=== PATIENT | male | born 1975 | race Caucasian/White ===

== ENCOUNTER 2019-01-22 19:32 | Emergency (ER) | payer OTHER, SELFPAY ==
[2019-01-22] MEDS ORDERED: NEOMY/POLY/HC 1% OTIC DROPS ONE (22:04)
[2019-01-22] MEDS ORDERED: FENTANYL CITR 100 MCG/2 ML ONE (22:04)
--- NOTE | 2019-01-22 22:49 | EDPHYS ---
Physician Documentation [facility] Name: Eyal Dillard Age: 43 yrs Sex: Male : 1975 Arrival Date: 01/22/2019 Time: 19:35 Bed 13 Private MD: ED Physician Aniket Felix HPI: 01/23 02:22 This 43 yrs old Male presents to ER via Ambulatory with complaints of Ear snw Pain. 02:22 The patient presents with pain, severe. The complaints affect the right ear. Onset: The snw symptoms/episode began/occurred suddenly, 2 day(s) ago, and became worse and became persistent. Associated signs and symptoms: Pertinent negatives: cough, fever, vomiting. Severity of symptoms: At their worst the symptoms were moderate severe. The patient has not experienced similar symptoms in the past. The patient has not recently seen a physician. pt wears earplugs at work. Historical: - Allergies: 01/22 19:52 PENICILLINS; jd3 - Home Meds: 19:52 subutex [Active]; jd3 - PMHx: 19:52 None; jd3 - PSHx: 19:52 None; jd3 - Immunization history:: Adult Immunizations up to date. - Social history:: Smoking status: Patient uses tobacco products, smokes one-half pack cigarettes per day. - Ebola Screening: : Patient negative for fever greater than or equal to 101.5 degrees Fahrenheit, and additional compatible Ebola Virus Disease symptoms. ROS: 01/23 02:22 Constitutional: Negative for fever, chills, and weight loss, Eyes: Negative for injury, snw pain, redness, and discharge, Neck: Negative for injury, pain, and swelling, Cardiovascular: Negative for chest pain, palpitations, and edema, Respiratory: Negative for shortness of breath, cough, wheezing, and pleuritic chest pain, Abdomen/GI: Negative for abdominal pain, nausea, vomiting, diarrhea, and constipation, Back: Negative for injury and pain, : Negative for injury, bleeding, discharge, and swelling, MS/Extremity: Negative for injury and deformity, Skin: Negative for injury, rash, and discoloration, Neuro: Negative for headache, weakness, numbness, tingling, and seizure. Exam: 02:18 Constitutional: This is a well developed, well nourished patient who is awake, alert, snw and in no acute distress. Head/Face: Normocephalic, atraumatic. Eyes: Pupils equal round and reactive to light, extra-ocular motions intact. Lids and lashes normal. Conjunctiva and sclera are non-icteric and not injected. Cornea within normal limits. Periorbital areas with no swelling, redness, or edema. Neck: Trachea midline, no thyromegaly or masses palpated, and no cervical lymphadenopathy. Supple, full range of motion without nuchal rigidity, or vertebral point tenderness. No Meningismus. Chest/axilla: Normal chest wall appearance and motion. Nontender with no deformity. No lesions are appreciated. Cardiovascular: Regular rate and rhythm with a normal S1 and S2. No gallops, murmurs, or rubs. Normal PMI, no JVD. No pulse deficits. Respiratory: Lungs have equal breath sounds bilaterally, clear to auscultation and percussion. No rales, rhonchi or wheezes noted. No increased work of breathing, no retractions or nasal flaring. Abdomen/GI: Soft, non-tender, with normal bowel sounds. No distension or tympany. No guarding or rebound. No evidence of tenderness throughout. Back: No spinal tenderness. No costovertebral tenderness. Full range of motion. Skin: Warm, dry with normal turgor. Normal color with no rashes, no lesions, and no evidence of cellulitis. MS/ Extremity: Pulses equal, no cyanosis. Neurovascular intact. Full, normal range of motion. Neuro: Awake and alert, GCS 15, oriented to person, place, time, and situation. Cranial nerves II-XII grossly intact. Motor strength 5/5 in all extremities. Sensory grossly intact. Cerebellar exam normal. Normal gait. Psych: Awake, alert, with orientation to person, place and time. Behavior, mood, and affect are within normal limits. 02:18 ENT: External ear(s): are unremarkable, Ear canal(s): purulent discharge, that is moderate, in the right canal, TM's: not visable, because of discharge, Nose: is normal, Mouth: is normal, Posterior pharynx: is normal, Voice: is normal. Vital Signs: 01/22 19:52 BP 137 / 97; Pulse 59; Resp 16 S; Temp 99.0(O); Pulse Ox 99% on R/A; Weight 79.38 kg jd3 (R); Height 6 ft. 0 in. (182.88 cm) (R); Pain 8/10; 21:00 BP 145 / 87; Pulse 57; Resp 16; Pulse Ox 98% on R/A; jb4 22:00 BP 147 / 88; Pulse 70; Resp 16; Pulse Ox 98% on R/A; jb4 22:45 BP 128 / 94; Pulse 56; Resp 16; Pulse Ox 98% on R/A; jb4 19:52 Body Mass Index 23.73 (79.38 kg, 182.88 cm) jd3 Procedures: 01/23 02:21 Performed wick placed to right ear canal, cortisporin otic placed. snw MDM: 01/22 21:38 Patient medically screened. snw 01/23 02:20 Data reviewed: vital signs, nurses notes. Data interpreted: Pulse oximetry: on room air snw is 98 %. Interpretation: normal. Counseling: I had a detailed discussion with the patient and/or guardian regarding: the historical points, exam findings, and any diagnostic results supporting the discharge/admit diagnosis, the presence of at least one elevated blood pressure reading (>120/80) during this emergency department visit, the need for outpatient follow up, to return to the emergency department if symptoms worsen or persist or if there are any questions or concerns that arise at home. Special discussion: I have referred the patient to see his PCP for further evaluation of high blood pressure. Based on the history and exam findings, there is no indication for further emergent testing or inpatient evaluation. I discussed with the patient/guardian the need to see the ENT specialist for further evaluation of the symptoms. I discussed with the patient/guardian the need to see the primary care provider for further evaluation of the symptoms. 02:21 Response to treatment: the patient's symptoms have mildly improved after treatment. snw 01/22 21:38 Order name: Julisa. Order: flush right ear canal gently with warm water; Complete Time: snw :01/22 22:47 Order name: Christelle. Order: ear wick placed; Complete Time: 23:04 snw Administered Medications: 01/22 22:00 Drug: Cortisporin Drops 4 drops {Note: administered by ER provider.} Route: Otic; Site: jb4 right ear; 22:09 Drug: fentaNYL (PF) 50 mcg Route: IM; Site: right gluteus; jb4 23:19 Follow up: Response: No adverse reaction; Pain is decreased jb4 23:04 Drug: TORadol 60 mg Route: IM; Site: left gluteus; jb4 23:18 Follow up: Response: No adverse reaction; Pain is decreased jb4 Disposition: 01/23 03:55 Co-signature as Attending Physician, Aniket Felix MD. Disposition: 01/22/19 22:48 Discharged to Home. Impression: Acute contact otitis externa, right ear. - Condition is Stable. - Discharge Instructions: Ear Drops, Adult, Otitis Externa. - Prescriptions for Ciprodex 0.3- 0.1 % Otic Drops, Suspension - instill 4 drop by OTIC route every 12 hours for 7 days , for ears ONLY; 1 Container. Diclofenac Sodium 75 mg Oral Tablet Sustained Release - take 1 tablet by ORAL route 2 times per day; 30 tablet. - Work release form, Medication Reconciliation Form, Thank You Letter, Antibiotic Education, Prescription Opioid Use form. - Follow up: Private Physician; When: 2 - 3 days; Reason: Recheck today's complaints, Continuance of care, Re-evaluation by your physician. Follow up: Emergency Department; When: As needed; Reason: Worsening of condition. Signatures: Patricia Mancia, CASING MAN-C CASING MAN-Csnw Yevgeniy Cummins RN RN jb4 Aniket Felix MD MD Ramin Macedo RN RN jd3 Corrections: (The following items were deleted from the chart) 01/22 23:22 22:48 01/22/2019 22:48 Discharged to Home. Impression: Acute contact otitis externa, jb4 right ear. Condition is Stable. Forms are Medication Reconciliation Form, Thank You Letter, Antibiotic Education, Prescription Opioid Use. Follow up: Private Physician; When: 2 - 3 days; Reason: Recheck today's complaints, Continuance of care, Re-evaluation by your physician. Follow up: Emergency Department; When: As needed; Reason: Worsening of condition. snw
--- NOTE | 2019-01-22 22:49 | ER ---
Nurse's Notes [facility] Name: Eyal Dillard Age: 43 yrs Sex: Male : 1975 Arrival Date: 01/22/2019 Time: 19:35 Bed 13 Private MD: Diagnosis: Acute contact otitis externa, right ear Presentation: 01/22 19:49 Presenting complaint: Patient states: "my right ear is hurting real bad, no injury it jd3 just hurts.". Transition of care: patient was not received from another setting of care. Onset of symptoms was January 22, 2019. Risk Assessment: Do you want to hurt yourself or someone else? Patient reports no desire to harm self or others. Initial Sepsis Screen: Does the patient meet any 2 criteria? No. Patient's initial sepsis screen is negative. Does the patient have a suspected source of infection? No. Patient's initial sepsis screen is negative. Care prior to arrival: None. 19:49 Method Of Arrival: Ambulatory jd3 19:49 Acuity: RM 4 jd3 Historical: - Allergies: 19:52 PENICILLINS; jd3 - Home Meds: 19:52 subutex [Active]; jd3 - PMHx: 19:52 None; jd3 - PSHx: 19:52 None; jd3 - Immunization history:: Adult Immunizations up to date. - Social history:: Smoking status: Patient uses tobacco products, smokes one-half pack cigarettes per day. - Ebola Screening: : Patient negative for fever greater than or equal to 101.5 degrees Fahrenheit, and additional compatible Ebola Virus Disease symptoms. Screenin:45 Abuse screen: Denies threats or abuse. Nutritional screening: No deficits noted. jb4 Tuberculosis screening: No symptoms or risk factors identified. Fall Risk None identified. Assessment: 21:10 General: Appears in no apparent distress. uncomfortable, Behavior is calm, cooperative, jb4 appropriate for age. Pain: Complains of pain in right ear Pain radiates to right side of head Pain currently is 10 out of 10 on a pain scale. Quality of pain is described as pressure, throbbing. Neuro: Level of Consciousness is awake, alert, obeys commands, Oriented to person, place, time, situation. Cardiovascular: Patient's skin is warm and dry. Respiratory: Airway is patent Respiratory effort is even, unlabored, Respiratory pattern is regular, symmetrical. GI: No signs and/or symptoms were reported involving the gastrointestinal system. : No signs and/or symptoms were reported regarding the genitourinary system. EENT: Throat is reddened has enlarged tonsils on right. Derm: Skin is intact, Skin is pink, warm \\T\\ dry. Musculoskeletal: Circulation, motion, and sensation intact. 22:00 Reassessment: Patient appears in no apparent distress at this time. Patient and/or jb4 family updated on plan of care and expected duration. Pain level reassessed. Patient is alert, oriented x 3, equal unlabored respirations, skin warm/dry/pink. 23:00 Reassessment: Patient appears in no apparent distress at this time. Patient and/or jb4 family updated on plan of care and expected duration. Pain level reassessed. Patient is alert, oriented x 3, equal unlabored respirations, skin warm/dry/pink. Patient states feeling better. Vital Signs: 19:52 BP 137 / 97; Pulse 59; Resp 16 S; Temp 99.0(O); Pulse Ox 99% on R/A; Weight 79.38 kg jd3 (R); Height 6 ft. 0 in. (182.88 cm) (R); Pain 8/10; 21:00 BP 145 / 87; Pulse 57; Resp 16; Pulse Ox 98% on R/A; jb4 22:00 BP 147 / 88; Pulse 70; Resp 16; Pulse Ox 98% on R/A; jb4 22:45 BP 128 / 94; Pulse 56; Resp 16; Pulse Ox 98% on R/A; jb4 19:52 Body Mass Index 23.73 (79.38 kg, 182.88 cm) jd3 ED Course: 19:35 Patient arrived in ED. es 19:50 Triage completed. jd3 19:52 Arm band placed on. jd3 20:42 Patricia [facility]ancia [facility]C [facility]. snw 20:42 Aniket Felix MD is Attending Physician. snw 21:00 Patient has correct armband on for positive identification. Bed in low position. Call jb4 light in reach. Side rails up X 1. Pulse ox on. NIBP on. 21:00 No provider procedures requiring assistance completed. Patient did not have IV access jb4 during this emergency room visit. 21:09 Yevgeniy Cummins, RN is Primary Nurse. jb4 Administered Medications: 22:00 Drug: Cortisporin Drops 4 drops {Note: administered by ER provider.} Route: Otic; Site: jb4 right ear; 22:09 Drug: fentaNYL (PF) 50 mcg Route: IM; Site: right gluteus; jb4 23:19 Follow up: Response: No adverse reaction; Pain is decreased jb4 23:04 Drug: TORadol 60 mg Route: IM; Site: left gluteus; jb4 23:18 Follow up: Response: No adverse reaction; Pain is decreased jb4 Outcome: 22:48 Discharge ordered by . jefe 23:22 Discharged to home ambulatory, with family. jb4 23:22 Condition: stable 23:22 Discharge instructions given to patient, family, Instructed on discharge instructions, follow up and referral plans. medication usage, Demonstrated understanding of instructions, follow-up care, medications, Prescriptions given X 2. 23:22 Patient left the ED. jb4 Signatures: Patricia Mancia, APPLICATION SOFTWARE DEVELOPER-C APPLICATION SOFTWARE DEVELOPER-CsnMeenakshi Velasquez James, RN RN jb4 Ramin Macedo RN RN jd3 Corrections: (The following items were deleted from the chart) 19:54 19:49 Presenting complaint: Patient states: "my right ear is hurting real bad." jd3 jd3 19:54 19:52 Pulse 59bpm; Resp 16bpm; Spontaneous; Pulse Ox 99% RA; Temp 99.0F Oral; 79.38 kg jd3 Reported; Height 6 ft. 0 in. Reported; BMI: 23.7; Pain 8/10; jd3 23:20 22:00 BP 128 / 94; Pulse 56bpm; Resp 16bpm; Pulse Ox 98% RA; jb4 jb4
[2019-01-22] MEDS ORDERED: KETOROLAC 30 MG/ML INJ ONE (23:12)
== END 2019-01-22 23:22 | disposition home or self-care (01) ==
LOC: ER 19:32
DX: H60.531 Acute contact otitis externa, right ear (principal); Z88.0 Allergy status to penicillin
CPT/HCPCS: 96372; 99283; J3010